=== PATIENT | female | born 1940 | race Caucasian/White ===

== ENCOUNTER 2017-09-27 07:08 | Emergency (ER) | payer MEDICARE, BC ==
[~2017-09-27] VITALS: Ht 167.6 cm; Wt 74.8 kg
[~2017-09-27 07:08] MED LIST: ATOR10TA PO; LEVO25TA2 PO; methotrexate
[2017-09-27] MEDS ORDERED: AMLO5TAB2 PO (07:40)
[2017-09-27] MEDS ORDERED: OMEG1CAP40 PO (07:40)
[2017-09-27] MEDS ORDERED: ATOR20TA PO (07:40)
[2017-09-27] MEDS ORDERED: VITAMIN (07:40)
[2017-09-27] MEDS ORDERED: CHOL10005 PO (07:40)
[2017-09-27] MEDS ORDERED: FOLI1TAB16 PO (07:40)
[2017-09-27] MEDS ORDERED: MINERAL (07:40)
[2017-09-27] MEDS ORDERED: METH2.5T PO (07:40)
--- NOTE | 2017-09-27 07:50 | NUR ---
Patient discharged to home in stable conditon & brisk steady gait. Written and verbal after care instructions given to patient. Patient verbalizes understanding of instructions.
== END 2017-09-27 07:51 | disposition home or self-care (01) ==
LOC: ER 07:11
DX: T50.901A Poisoning by unspecified drugs, medicaments and biological substances, accidental (unintentional), initial encounter (principal); I10 Essential (primary) hypertension; E78.5 Hyperlipidemia, unspecified; Z79.899 Other long term (current) drug therapy; Y92.89 Other specified places as the place of occurrence of the external cause
CPT/HCPCS: A4663